=== PATIENT | female | born 1980 ===

== ENCOUNTER → 2019-01-10 | Outpatient (REF) | LOC: M LAB LCGH 01-10 15:18 | PROVIDERS: ATTEND Obstetrics & Gynecology | DX: O48.0 Post-term pregnancy (principal) ==

== ENCOUNTER → 2019-03-07 | Outpatient (REF) | payer OTHER | LOC: M LAB LCGH 11:48 | PROVIDERS: ATTEND Obstetrics & Gynecology | DX: Z12.4 Encounter for screening for malignant neoplasm of cervix (principal); R87.610 Atypical squamous cells of undetermined significance on cytologic smear of cervix (ASC-US) | CPT/HCPCS: 87624; G0123 ==

== ENCOUNTER → 2019-04-05 | Outpatient (REF) | payer OTHER | LOC: M LAB LCGH 10:02 | PROVIDERS: ATTEND Obstetrics & Gynecology | DX: R87.610 Atypical squamous cells of undetermined significance on cytologic smear of cervix (ASC-US) (principal) ==